=== PATIENT | male | born 1935 | race Caucasian/White ===

== ENCOUNTER → 2020-03-07 | Outpatient (CLI) | payer OTHER ==
[~2020-03-07] MED LIST: AMLO10 PO; Aspir 8181 MG PO; CEPH500 PO; CHOL10002 PO; FISH OIL WITH1 EACH PO; Garlic1 EACH PO; HYDROEYE PO; IBUP400 PO; Multiple Vitam1 EAC1 PO; OXYACE5T PO; OXYACE7.5T PO; Stool Softener100 MG PO; TAMS.4ER PO
== END | disposition home or self-care (01) ==
LOC: LAB SHORT 15:05 → PLD 15:05
DX: L82.1 Other seborrheic keratosis (principal); D04.21 Carcinoma in situ of skin of right ear and external auricular canal; D04.62 Carcinoma in situ of skin of left upper limb, including shoulder; D04.4 Carcinoma in situ of skin of scalp and neck
CPT/HCPCS: 88305